=== PATIENT | female | born 1990 | race Caucasian/White ===

== ENCOUNTER → 2021-06-16 | Outpatient (CLI) | payer OTHER ==
[~2021-06-16] MED LIST: MOTRIN 800 MG E4 TAB PO; PRENATAL1 TA1 PO; TRAMADOL HCL50 MG PO
== END | disposition home or self-care (01) ==
LOC: MAMMO 14:29
PROVIDERS: ATTEND Nurse Practitioner Women's Health
DX: R92.2 Inconclusive mammogram (principal); N64.4 Mastodynia